=== PATIENT | female | born 1970 | race Caucasian/White ===

== ENCOUNTER 2016-05-02 17:48 | Emergency (ER) | payer MEDICARE, OTHER ==
[~2016-05-02] VITALS: Ht 175.3 cm; Wt 67.5 kg
[~2016-05-02 17:48] MED LIST: ATRITAB PO; CEPH500T PO; GABA300C3 PO; LAMO150 PO; PERC10TA27 PO; PERC5TAB12 PO; TIZA4 PO; TRAZ300T2 PO; VIMP200T PO
[2016-05-02 18:02] VITALS: BP 122/74; PULSE 89; RESP 16; TEMP 98.1; O2SAT 100
[2016-05-02 19:01] LABS: BLOOD, URINE NEG (NEG); GLUCOSE,URINE NEG (NEG); KETONE, URINE NEG (NEG); NITRITE,URINE NEG (NEG)
[2016-05-02 19:12] LABS: METHOD OF COLLECTION CLEAN CATCH; URINE COLOR YELLOW (YELLW/STRAW)
[2016-05-02 19:13] LABS: SQUAMOUS EPITHELIAL CELL URINE 0-5 /hpf (0-5)
[2016-05-02 19:15] LABS: COMMENT (UR) CULT NOT INDICATED; CULTURE IF INDICATED CULT NOT INDICATED; RBC, URINE 0-3 /hpf (0-3)
[2016-05-02] MEDS ORDERED: MORPHINE SULFATE 4 MG/ML INJ IV PUSH ONE (19:15)
[2016-05-02] MEDS ORDERED: SODIUM CHLORIDE 0.9% FLUSH 5 ML FLUSH IVF PRN (19:15)
[2016-05-02] MEDS ORDERED: ONDANSETRON HCL 4 MG/2 ML VIAL IVP ONE (19:15)
--- NOTE | 2016-05-02 19:27 | PD ---
HPI . Abdominal pain and bloating Chief Complaint: Abdominal Pain Time Seen by Provider: 19:04 Travel History International Travel<30 days: No Contact w/Intl Traveler<30days: No Traveled to known affect area: No History of Present Illness HPI Patient presents with abdominal pain and bloating which started today. She states that she normally has a 26 inch waist. She awakened this morning to an abdomen that looks to be about 6-7 months . She reports some associated nausea and vomiting. She reports normal bowel movements. She denies any urinary tract symptoms. She denies fever. PFSH Past Medical History Asthma: No Autoimmune Disease: Yes (HIV POSITIVE) Bipolar Disorder: Yes Anxiety: Yes (PANIC ATTACKS ) Depression: Yes (BIPOLAR) Cancer: No Cardiovascular Problems: No High Cholesterol: Yes Chest Pain: Yes Diabetes: No Diminished Hearing: No Endocrine: No Gastrointestinal Disorders: No Genitourinary: No Headaches: Yes Hepatitis: No Hiatal Hernia: No Immune Disorder: Yes (HIV POSITIVE) Kidney Stones: No Musculoskeletal: Yes (CHRONIC BACK PAIN, BULGING DISC) Neurologic: Yes (SEIZURES FROM ABNORMAL FRONTAL LOBE ACTIVITY; HEAD TRAUMA 1995 ) Psychiatric: Yes (MOOD DISORDER; PANIC ATTACKS ) Reproductive: No Respiratory: No Immunizations Current: Yes Migraines: Yes Seizures: Yes Thyroid Disease: No ?: Not Menopausal: Yes : 6 Para: 2 Miscarriage: 2 : 2 Past Surgical History Abdominal Surgery: No AICD: No Body Medical Devices: NONE Cardiac Surgery: No Ear Surgery: No Endocrine Surgery: No Eye Surgery: No Genitourinary Surgery: No Gynecologic Surgery: Yes (OVARIAN PROLASPED LEFT SURG REPOSITIONING 07/2012; PARTIAL HYSTERECTOMY ) Hysterectomy: Yes (PARTIAL) Joint Replacement: No Oral Surgery: No Pacemaker: No Thoracic Surgery: No Other Surgery: Yes (PARTIAL HYSTERECTOMEY) Social History Alcohol Use: No Tobacco Use: No (quit 14 days ago) Substance Use: Yes (MARIJUANA DAILY) Allergies-Medications (Allergen,Severity, Reaction): Coded Allergies: No Known Allergies (Unverified , 05/02/16) Reported Meds & Prescriptions Reported Meds & Active Scripts Active Reported Lamictal (Lamotrigine) 200 Mg Tab 200 Mg PO DAILY Atripla (Rskinzjsk-Zyirgwmyxyfft-Naoubkgjj) 600-200-300 Mg Tab 1 Tab PO HS Take on an empty stomach. Trazodone (Trazodone HCl) 150 Mg Tab 150 Mg PO HS Review of Systems Except as stated in HPI: all other systems reviewed are Neg General / Constitutional: No: Fever, Chills Cardiovascular: No: Chest Pain or Discomfort Respiratory: No: Shortness of Breath Gastrointestinal: Positive: Nausea, Vomiting, Abdominal Pain, Other (bloating) , No: Diarrhea, Constipation, Changes in Bowel Habits Genitourinary: Positive: Frequency (patient states that she is having to use the restroom more frequently as she gets older.), No: Urgency, Dysuria Musculoskeletal: Positive: Myalgias (chronic low back pain) Psychiatric: Positive: Anxiety, Depression Physical Exam Narrative GENERAL: Patient is standing in the room in no acute distress. SKIN: Warm and dry. HEAD: Atraumatic. Normocephalic. EYES: Pupils equal and round. ENT: No nasal bleeding or discharge. Mucous membranes pink and moist. NECK: Trachea midline. Neck is supple. CARDIOVASCULAR: Regular rate and rhythm. Heart sounds are normal. RESPIRATORY: No accessory muscle use. Lungs are clear with full air movement throughout. GASTROINTESTINAL: Abdomen soft. Decreased bowel sounds. Bloating. Diffuse mild tenderness with no guarding or rebound. MUSCULOSKELETAL: No obvious deformities. No edema. NEUROLOGICAL: Awake and alert. No obvious cranial nerve deficits. Motor grossly within normal limits. Normal speech. PSYCHIATRIC: Appropriate mood and affect; insight and judgment normal. Data Data Last Documented VS Vital Signs Date Time Temp Pulse Resp B/P Pulse Ox O2 Delivery O2 Flow Rate FiO2 05/02/16 18:02 98.1 89 16 122/74 100 Orders Urinalysis - C+S If Indicated (05/02/16 18:13) Ed Urine Pregnancytest Poc (05/02/16 18:13) Complete Blood Count With Diff (05/02/16 19:09) Comprehensive Metabolic Panel (05/02/16 19:09) Ct Abd/Pel W Iv Contrast(Rout) (05/02/16 19:09) Iv Access Insert/Monitor (05/02/16 19:09) Ecg Monitoring (05/02/16 19:09) Oximetry (05/02/16 19:09) Morphine Inj (Morphine Inj) (05/02/16 19:15) Ondansetron Inj (Zofran Inj) (05/02/16 19:15) Sodium Chloride 0.9% Flush (Ns Flush) (05/02/16 19:15) Iohexol 350 Inj (Omnipaque 350 Inj) (05/02/16 21:09) Labs Laboratory Tests Test 05/02/16 05/02/16 18:12 19:40 Urine Collection Type CLEAN CATCH Urine Color YELLOW Urine Turbidity CLEAR Urine pH 6.0 Urine Specific [place] 1.015 Urine Protein NEG mg/dL Urine Glucose (UA) NEG mg/dL Urine Ketones NEG mg/dL Urine Occult Blood NEG Urine Nitrite NEG Urine Bilirubin NEG Urine Leukocyte Esterase NEG Urine RBC 0-3 /hpf Urine Squamous Epithelial 0-5 /hpf Cells Microscopic Urinalysis Comment CULT NOT INDICATED White Blood Count 5.0 TH/MM3 Red Blood Count 3.56 MIL/MM3 Hemoglobin 12.0 GM/DL Hematocrit 36.0 % Mean Corpuscular Volume 101.0 FL Mean Corpuscular Hemoglobin 33.7 PG Mean Corpuscular Hemoglobin 33.4 % Concent Red Cell Distribution Width 12.3 % Platelet Count 169 TH/MM3 Mean Platelet Volume 8.3 FL Neutrophils (%) (Auto) 52.1 % Lymphocytes (%) (Auto) 41.4 % Monocytes (%) (Auto) 4.2 % Eosinophils (%) (Auto) 1.6 % Basophils (%) (Auto) 0.7 % Neutrophils # (Auto) 2.6 TH/MM3 Lymphocytes # (Auto) 2.1 TH/MM3 Monocytes # (Auto) 0.2 TH/MM3 Eosinophils # (Auto) 0.1 TH/MM3 Basophils # (Auto) 0.0 TH/MM3 CBC Comment DIFF FINAL Differential Comment Sodium Level 141 MEQ/L Potassium Level 4.1 MEQ/L Chloride Level 105 MEQ/L Carbon Dioxide Level 31.0 MEQ/L Anion Gap 5 MEQ/L Blood Urea Nitrogen 16 MG/DL Creatinine 0.79 MG/DL Estimat Glomerular Filtration 79 ML/MIN Rate Random Glucose 92 MG/DL Calcium Level 8.2 MG/DL Total Bilirubin 0.1 MG/DL Aspartate Amino Transf 17 U/L (AST/SGOT) Alanine Aminotransferase 24 U/L (ALT/SGPT) Alkaline Phosphatase 70 U/L Total Protein 6.4 GM/DL Albumin 3.7 GM/DL [facility] Medical Decision Making Medical Screen Exam Complete: Yes Emergency Medical Condition: Yes Differential Diagnosis Differential diagnosis of abdominal pain includes but is not limited to gastritis, pancreatitis, hepatitis, gastroenteritis, gallbladder disease, constipation, urinary retention, UTI, peptic ulcer disease, diverticulitis or appendicitis Narrative Course Patient presents for evaluation of abdominal pain and bloating. Her past medical history significant in that she is HIV positive, she has a previous closed head injury with a resultant seizure disorder, chronic low back pain, chronic anxiety and depression. 8 PM Her UA is negative for infection. No other labs are currently available. 9:30 PM CBC has a normal white count of 5.0. H&H is 12.0 36.0. Chemistries are unremarkable. CT shows a considerable amount of stool. CT also reports a possible superior mesenteric artery syndrome. However, she has normal labs. Therefore, I doubt that diagnosis. I will treat her for constipation. Diagnosis Primary Impression: Abdominal pain Qualified Code: R10.84 - Generalized abdominal pain Additional Impression: Constipation Patient Instructions: Constipation (ED), General Instructions Disposition: 01 DISCHARGE HOME Condition: Stable Laura Bernstein MD May 02, 2016 19:26
[2016-05-02 20:15] LABS: AUTOMATED NEUTROPHIL # 2.6 TH/MM3 (1.8-7.7); BASOPHIL % 0.7 % (0.0-2.0); EOSINOPHIL # 0.1 TH/MM3 (0-0.4); EOSINOPHIL % 1.6 % (0.0-4.0); HEMO FLAGS DIFF FINAL; LYMPH % 41.4 % (9.0-44.0); LYMPHOCYTE # 2.1 TH/MM3 (1.0-4.8); MEAN CORPUSCULAR HEMOGLOBIN 33.7 PG (27.0-34.0); MEAN CORPUSCULAR HGB CONC 33.4 % (32.0-36.0); MONO % 4.2 % (0.0-8.0); NEUT % 52.1 % (16.0-70.0); PLATELET COUNT 169 TH/MM3 (150-450); RED BLOOD COUNT 3.56 MIL/MM3 (4.00-5.30); RED CELL DISTRIBUTION WIDTH 12.3 % (11.6-17.2)
[2016-05-02] MEDS ORDERED: ATRITAB PO (20:20)
[2016-05-02] MEDS ORDERED: LAMI200T PO (20:20)
[2016-05-02] MEDS ORDERED: TRAZ150T75 PO (20:20)
[2016-05-02 20:27] LABS: CHLORIDE 105 MEQ/L (98-107); POTASSIUM 4.1 MEQ/L (3.5-5.1); SODIUM (NA) 141 MEQ/L (136-145)
[2016-05-02 20:31] LABS: ANION GAP 5 MEQ/L (5-15); BLOOD UREA NITROGEN 16 MG/DL (7-18)
[2016-05-02 20:34] LABS: ALT (GPT) 24 U/L (10-53); AST (GOT) 17 U/L (15-37); GLOMERULAR FILTRATION RATE 79 ML/MIN (>89)
[2016-05-02 20:35] LABS: TOTAL BILIRUBIN ADULT 0.1 MG/DL (0.2-1.0)
[2016-05-02 20:37] LABS: ALKALINE PHOSPHATASE 70 U/L (45-117)
[2016-05-02] MEDS ORDERED: IOHEXOL 350 MG/ML 10 ML VIAL (for RAD DIAG) IV ONE (21:09)
--- NOTE | 2016-05-02 21:20 | RADHPO ---
EXAM DATE/TIME: 05/02/2016 20:53 [facility] COMPARISON: CT ABDOMEN & PELVIS W CONTRAST, October 29, 2012, 15:18. INDICATIONS : Abdomen distention. IV CONTRAST: 76 cc Omnipaque 350 (iohexol) IV ORAL CONTRAST: No oral contrast ingested. RADIATION DOSE: 8.08 CTDIvol (mGy) MEDICAL HISTORY : HIV. SURGICAL HISTORY : Hysterectomy. ENCOUNTER: Initial ACUITY: 1 day PAIN SCALE: 7/10 LOCATION: abdomen TECHNIQUE: Volumetric scanning of the abdomen and pelvis was performed. Using automated exposure control and ad justment of the mA and/or kV according to patient size, radiation dose was kept as low as reasonably achievable to obtain optimal diagnostic quality images. FINDINGS: LOWER LUNGS: The visualized lower lungs are clear. LIVER: Homogeneous density without lesion. There is no dilation of the biliary tree. No calcified gallston es. SPLEEN: Normal size without lesion. PANCREAS: Within normal limits. KIDNEYS: Normal in size and shape. There is no mass, stone or hydronephrosis. ADRENAL GLANDS: Within normal limits. VASCULAR: There is no aortic aneurysm. BOWEL/MESENTERY: Common caliber second and third portions of the duodenum noted Moderate stool throughout the colon. N o evidence of colonic obstruction. No free air demonstrated. Appendix is normal. ABDOMINAL WALL: Within normal limits. RETROPERITONEUM: There is no lymphadenopathy. BLADDER: No wall thickening or mass. REPRODUCTIVE: Apparent hysterectomy. No free fluid. INGUINAL: There is no lymphadenopathy or hernia. MUSCULOSKELETAL: No acute bony abnormality demonstrated. CONCLUSION: 1. Common caliber second and third portion of the duodenum, nonspecific but superior mesenteric arter y syndrome would be in the differential. I don't see a mass.2. Considerable stool throughout the colo n. No evidence of colonic obstruction. Azar Reyna MD on May 02, 2016 at 21:14 Board Certified Radiologist. This report was verified electronically.
[2016-05-02 21:35] VITALS: BP 154/67; PULSE 89; RESP 16; O2SAT 99
[2016-05-02] MEDS ORDERED: MINERAL OIL ENEMA 118 ML BTL RECTAL ONE (21:45)
[2016-05-02] MEDS ORDERED: MAGNESIUM CITRATE SOLN 300 ML BTL PO ONE (21:45)
== END 2016-05-02 22:25 | disposition home or self-care (01) ==
LOC: PHED 17:48
DX: R10.84 Generalized abdominal pain (principal); R11.2 Nausea with vomiting, unspecified; E78.00 Pure hypercholesterolemia, unspecified; F12.10 Cannabis abuse, uncomplicated; K59.00 Constipation, unspecified
CPT/HCPCS: 74177; 80053; 81001; 84703; 85025; 96374; 96375; 99284; J2270; J2405; Q9967

== ENCOUNTER 2016-06-20 11:51 | Emergency (ER) | payer MEDICARE, OTHER ==
[~2016-06-20] VITALS: Ht 175.3 cm; Wt 70.0 kg
[~2016-06-20 11:51] MED LIST changes: -CEPH500T PO; -GABA300C3 PO; +LAMI200T PO; -LAMO150 PO; -PERC10TA27 PO; -PERC5TAB12 PO; -TIZA4 PO; +TRAZ150T75 PO; -TRAZ300T2 PO; -VIMP200T PO
[2016-06-20 12:02] VITALS: BP 126/58; PULSE 92; RESP 18; TEMP 98.9; O2SAT 99
[2016-06-20] MEDS ORDERED: ACETAMINOPHEN/CODEINE 300 MG/30 MG TAB PO ONE (13:15)
[2016-06-20] MEDS ORDERED: ORPHENADRINE INJ 60 MG/2 ML AMP IM ONE (13:15)
[2016-06-20] MEDS ORDERED: KETOROLAC TROMETHAMINE 60 MG/2 ML (IM) VIAL IM ONE (13:15)
--- NOTE | 2016-06-20 13:18 | PD ---
HPI Chief Complaint: Back/ Neck Pain or Injury Time Seen by Provider: 13:10 Travel History International Travel<30 days: No Contact w/Intl Traveler<30days: No Traveled to known affect area: No History of Present Illness HPI 45-year-old female with history of HIV, epilepsy, on antiretroviral therapy. She presents for evaluation of back pain. She reports that yesterday she moved into a new apartment building on the second floor. She had to do a lot of heavy lifting and exacerbated her chronic lower back pain. This morning she slipped on the steps and landed on her back while walking down the stairs. Since then she has had worsening lower back pain. The pain is an aching pain is constant and worse with movement. The pain radiates down the posterior left leg. She denies any bowel or bladder incontinence, saddle anesthesia, abdominal pain. She reports that she is status post L4 to L5 laminectomy in January 2015 secondary to intractable lower back pain with radicular symptoms. Her last MRI in October 2015 revealed generalized degenerative changes. She has no other complaints. 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; HEAD TRAUMA 1995 ) Psychiatric: Yes (MOOD DISORDER; PANIC ATTACKS ) Reproductive: No Respiratory: No Immunizations Current: Yes Migraines: Yes Seizures: Yes Thyroid Disease: No Influenza Vaccination: Yes ?: Not Menopausal: Yes : 6 Para: 2 Miscarriage: 2 : 2 Past Surgical History Abdominal Surgery: No AICD: No Body Medical Devices: NONE Cardiac Surgery: No Ear Surgery: No Endocrine Surgery: No Eye Surgery: No Genitourinary Surgery: No Gynecologic Surgery: Yes (OVARIAN PROLASPED LEFT SURG REPOSITIONING 07/2012; PARTIAL HYSTERECTOMY ) Hysterectomy: Yes Joint Replacement: No Neurologic Surgery: No Oral Surgery: No Pacemaker: No Thoracic Surgery: No Other Surgery: Yes (PARTIAL HYSTERECTOMEY) Social History Alcohol Use: No Tobacco Use: No Substance Use: Yes (MARIJUANA DAILY) Allergies-Medications (Allergen,Severity, Reaction): Coded Allergies: No Known Allergies (Unverified , 06/20/16) Reported Meds & Prescriptions Reported Meds & Active Scripts Active Baclofen 10 Mg Tab 10 Mg PO TID 10 Days Tylenol-Codeine #3 (Acetaminophen-Codeine) 300-30 mg Tab 1-2 Tab PO Q6H PRN Reported Lamictal (Lamotrigine) 200 Mg Tab 200 Mg PO DAILY Atripla (Mwyyrriwg-Iynguzjzysehv-Ludfvzpfw) 600-200-300 Mg Tab 1 Tab PO HS Take on an empty stomach. Trazodone (Trazodone HCl) 150 Mg Tab 150 Mg PO HS Review of Systems Except as stated in HPI: all other systems reviewed are Neg Physical Exam Narrative GENERAL: Well-developed well-nourished female who is tearful and anxious. SKIN: Warm and dry. There is no bruising or soft tissue swelling. HEAD: Atraumatic. Normocephalic. EYES: Pupils equal and round. No scleral icterus. No injection or drainage. ENT: No nasal bleeding or discharge. Mucous membranes pink and moist. NECK: Trachea midline. No JVD. CARDIOVASCULAR: Regular rate and rhythm. No murmur appreciated. RESPIRATORY: No accessory muscle use. Clear to auscultation. Breath sounds equal bilaterally. GASTROINTESTINAL: Abdomen soft, non-tender, nondistended. Hepatic and splenic margins not palpable. MUSCULOSKELETAL: No obvious deformities. There is mild generalized tenderness to palpation to the lower back. Negative straight leg raise bilaterally. Normal range of motion of the lower extremities. There is some pain with hip flexor activity. No CVA tenderness. NEUROLOGICAL: Awake and alert. No obvious cranial nerve deficits. Motor grossly within normal limits. Normal speech. Data Data Last Documented VS Vital Signs Date Time Temp Pulse Resp B/P Pulse Ox O2 Delivery O2 Flow Rate FiO2 06/20/16 12:02 98.9 92 18 126/58 99 Orders Spine, Thoracic-Ap/Lat/Sw(3vw) (06/20/16 ) Spine, Lumbar - Ltd (Ap & Lat) (06/20/16 ) Acetamin-Codeine 300-30 Mg (Tylenol-Code (06/20/16 13:15) Ketorolac Inj (Toradol Inj) (06/20/16 13:15) Orphenadrine Inj (Norflex Inj) (06/20/16 13:15) [facility] Medical Decision Making Medical Screen Exam Complete: Yes Emergency Medical Condition: Yes Medical Record Reviewed: Yes Differential Diagnosis Herniated mucous pulposus, muscle strain, muscle spasm, fracture, contusion, spinal stenosis Narrative Course 45-year-old female with chronic lower back pain presents with worsening lower back pain after moving into a second-story apartment yesterday and falling down some stairs today. She has no symptoms to suggest a central spinal cord injury. She does have some radicular symptoms down the back of her left leg. X -ray of the thoracic and lumbar spine reveal no acute abnormalities. The patient is being discharged with Tylenol with Codeine and baclofen. Diagnosis Primary Impression: Lumbosacral radiculopathy Additional Instructions: Medication as needed. Do not drive or drink alcohol when taking his medications. Rest. Avoid strenuous activity. Follow-up with primary care physician in one to 2 weeks. Return for any emergent medical conditions. Med/Other Pt SpecificInfo: Prescription(s) given Scripts Baclofen 10 Mg Tab10 Mg PO TID 10 Days Ref 0 Prov:Gerald Rizo MD 06/20/16 Acetaminophen-Codeine (Tylenol-Codeine #3)300-30 mg Tab1-2 Tab PO Q6H PRN (PAIN ) #20 TAB Ref 0 Prov:Gerald Rizo MD 06/20/16 Disposition: 01 DISCHARGE HOME Condition: Stable Leighton Rios Jun 20, 2016 13:18
--- NOTE | 2016-06-20 14:07 | RADHPO ---
EXAM DATE/TIME: 06/20/2016 13:32 [facility] COMPARISON: No previous studies available for comparison. INDICATIONS : Upper back pain after fall. MEDICAL HISTORY : None. SURGICAL HISTORY : Discectomy, lumbar. ENCOUNTER: Initial ACUITY: 1 day PAIN SCORE: 10/10 LOCATION: Thoracic spine FINDINGS: There is normal alignment of the thoracic vertebral bodies. Vertebral body height is maintained. No evidence of fracture or subluxation. Pedicles are intact at all levels. The paravertebral reflecti ons are not thickened. Mild degenerative spondylosis seen in the mid to lower levels. CONCLUSION: Mild mid to lower thoracic spondylosis. No evidence of acute fracture, destructive changes or soft tissue abnormality. Chito Gray MD on June 20, 2016 at 14:04 Board Certified Radiologist. This report was verified electronically.
--- NOTE | 2016-06-20 14:07 | RADHPO ---
EXAM DATE/TIME: 06/20/2016 13:33 [facility] COMPARISON: No previous studies available for comparison. INDICATIONS : Lower back pain after fall. MEDICAL HISTORY : None. SURGICAL HISTORY : Discectomy, lumbar. ENCOUNTER: Initial ACUITY: 1 day PAIN SCORE: 10/10 LOCATION: Lumbar spine FINDINGS: Two view examination was performed. There are five non-rib bearing vertebral bodies. The vertebral bodies are in normal alignment without evidence of subluxation or scoliosis. The disc spaces are tawana ntained. The pedicles are intact. Bony mineralization is normal. No fracture is identified. CONCLUSION: No acute disease. Chito Gray MD on June 20, 2016 at 14:06 Board Certified Radiologist. This report was verified electronically.
[2016-06-20] MEDS ORDERED: TYLETAB34 PO (14:21)
[2016-06-20] MEDS ORDERED: BACL10TA PO (14:21)
== END 2016-06-20 14:40 | disposition home or self-care (01) ==
LOC: PHEFT 11:51
DX: M54.17 Radiculopathy, lumbosacral region (principal); G89.29 Other chronic pain; B20 Human immunodeficiency virus [HIV] disease
CPT/HCPCS: 72072; 72100; 96372; 99283; J1885; J2360

== ENCOUNTER 2016-11-26 15:01 | Emergency (ER) | payer MEDICARE, OTHER ==
[~2016-11-26 15:01] MED LIST changes: +BACL10TA PO; +TYLETAB34 PO
--- NOTE | 2016-11-26 15:22 | PD ---
HPI Chief Complaint: BA Time Seen by Provider: 15:22 Travel History International Travel<30 days: No Contact w/Intl Traveler<30days: No Traveled to known affect area: No History of Present Illness HPI 46-year-old female with history of bipolar disorder, depression, HIV with undetectable CD4 count, opiate dependency, presents to the emergency department for evaluation under a [facility] act. Patient states she last used here when yesterday morning around 3 AM. She is actively withdrawing. She states she does not want to live anymore. She was placed under [facility] act due to suicidal threats. Patient does not discuss a plan. She is extremely anxious at this time and states that she "needs help." States she typically snorts 8-10 g of heroin daily. She denies a chest x-ray or tightness. States that she has entire body aches and is extremely anxious. She has no other symptoms reported time. 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; HEAD TRAUMA 1995 ) Psychiatric: Yes (MOOD DISORDER; PANIC ATTACKS ) Reproductive: No Respiratory: No Immunizations Current: Yes Migraines: Yes Seizures: Yes Thyroid Disease: No Menopausal: Yes : 6 Para: 2 Miscarriage: 2 : 2 Past Surgical History Abdominal Surgery: No AICD: No Body Medical Devices: NONE Cardiac Surgery: No Ear Surgery: No Endocrine Surgery: No Eye Surgery: No Genitourinary Surgery: No Gynecologic Surgery: Yes (OVARIAN PROLASPED LEFT SURG REPOSITIONING 07/2012; PARTIAL HYSTERECTOMY ) Hysterectomy: Yes Joint Replacement: No Neurologic Surgery: No Oral Surgery: No Pacemaker: No Thoracic Surgery: No Other Surgery: Yes (PARTIAL HYSTERECTOMEY) Social History Alcohol Use: No Tobacco Use: No Substance Use: Yes (MARIJUANA DAILY) Allergies-Medications (Allergen,Severity, Reaction): Coded Allergies: No Known Allergies (Unverified , 11/26/16) Reported Meds & Prescriptions Reported Meds & Active Scripts Active Reported Lamictal (Lamotrigine) 200 Mg Tab 200 Mg PO DAILY Atripla (Dvbxstsyw-Xvhehwaalhsej-Ztytnqpqs) 600-200-300 Mg Tab 1 Tab PO HS Take on an empty stomach. Review of Systems Except as stated in HPI: all other systems reviewed are Neg Physical Exam Narrative GENERAL: Well-nourished female patient, anxious, agitated, unable to sit still, frequent yawning, jerking movements. SKIN: Focused skin assessment warm/dry. Track lozano bilateral upper extremities. 3 cm area of Slight erythema left forearm. No induration. No fluctuation. HEAD: Atraumatic. Normocephalic. EYES: Pupils equal and round. No scleral icterus. No injection or drainage. ENT: No nasal bleeding or discharge. Mucous membranes pink and moist. NECK: Trachea midline. No JVD. CARDIOVASCULAR: Elevated rate and rhythm. No murmur appreciated. RESPIRATORY: No accessory muscle use. Clear to auscultation. Breath sounds equal bilaterally. GASTROINTESTINAL: Abdomen soft, non-tender, nondistended. Hepatic and splenic margins not palpable. MUSCULOSKELETAL: No obvious deformities. No clubbing. No cyanosis. No edema. NEUROLOGICAL: Awake and alert. No obvious cranial nerve deficits. Motor grossly within normal limits. Normal speech. Data Data Last Documented VS Vital Signs Date Time Temp Pulse Resp B/P Pulse Ox O2 Delivery O2 Flow Rate FiO2 11/26/16 15:25 98.9 107 18 127/97 96 Orders Complete Blood Count With Diff (11/26/16 15:24) Basic Metabolic Panel (Bmp) (11/26/16 15:24) Urinalysis - C+S If Indicated (11/26/16 15:24) Psych Screen (11/26/16 15:24) Drug Screen, Random Urine (11/26/16 15:24) Alcohol (Ethanol) (11/26/16 15:24) Diphenhydramine Inj (Benadryl Inj) (11/26/16 15:45) Haloperidol Inj (Haldol Inj) (11/26/16 15:45) Lorazepam Inj (Ativan Inj) (11/26/16 15:45) Labs Laboratory Tests Test 11/26/16 11/26/16 15:34 15:36 White Blood Count 7.1 TH/MM3 Red Blood Count 4.04 MIL/MM3 Hemoglobin 14.0 GM/DL Hematocrit 41.1 % Mean Corpuscular Volume 101.7 FL Mean Corpuscular Hemoglobin 34.7 PG Mean Corpuscular Hemoglobin 34.1 % Concent Red Cell Distribution Width 12.7 % Platelet Count 190 TH/MM3 Mean Platelet Volume 8.5 FL Neutrophils (%) (Auto) 66.0 % Lymphocytes (%) (Auto) 24.1 % Monocytes (%) (Auto) 5.4 % Eosinophils (%) (Auto) 4.0 % Basophils (%) (Auto) 0.5 % Neutrophils # (Auto) 4.7 TH/MM3 Lymphocytes # (Auto) 1.7 TH/MM3 Monocytes # (Auto) 0.4 TH/MM3 Eosinophils # (Auto) 0.3 TH/MM3 Basophils # (Auto) 0.0 TH/MM3 CBC Comment DIFF FINAL Differential Comment Sodium Level 141 MEQ/L Potassium Level 4.1 MEQ/L Chloride Level 108 MEQ/L Carbon Dioxide Level 22.2 MEQ/L Anion Gap 11 MEQ/L Blood Urea Nitrogen 15 MG/DL Creatinine 0.76 MG/DL Estimat Glomerular Filtration 83 ML/MIN Rate Random Glucose 95 MG/DL Calcium Level 8.7 MG/DL Ethyl Alcohol Level 43 MG/DL Urine Color LIGHT-YELLOW Urine Turbidity CLEAR Urine pH 6.0 Urine Specific [place] 1.005 Urine Protein NEG mg/dL Urine Glucose (UA) NEG mg/dL Urine Ketones NEG mg/dL Urine Occult Blood NEG Urine Nitrite NEG Urine Bilirubin NEG Urine Urobilinogen LESS THAN 2.0 MG/DL Urine Leukocyte Esterase NEG Urine RBC LESS THAN 1 /hpf Urine WBC LESS THAN 1 /hpf Urine Squamous Epithelial 1 /hpf Cells Urine Bacteria RARE /hpf Microscopic Urinalysis Comment CULT NOT INDICATED Urine Opiates Screen NEG Urine Barbiturates Screen NEG Urine Amphetamines Screen NEG Urine Benzodiazepines Screen POS Urine Cocaine Screen NEG Urine Cannabinoids Screen POS MDM Medical Decision Making Medical Screen Exam Complete: Yes Emergency Medical Condition: Yes Medical Record Reviewed: Yes Differential Diagnosis Mood disorder versus personality disorder versus adjustment reaction disorder versus opiate dependency versus withdrawal Narrative Course 46-year-old female presents under [facility] psychiatric evaluation. Patient states she is withdrawing from line. She is agitated, anxious, and unable to sit still during my time with her. Laboratory Tests Test 11/26/16 11/26/16 15:34 15:36 White Blood Count 7.1 TH/MM3 Red Blood Count 4.04 MIL/MM3 Hemoglobin 14.0 GM/DL Hematocrit 41.1 % Mean Corpuscular Volume 101.7 FL Mean Corpuscular Hemoglobin 34.7 PG Mean Corpuscular Hemoglobin 34.1 % Concent Red Cell Distribution Width 12.7 % Platelet Count 190 TH/MM3 Mean Platelet Volume 8.5 FL Neutrophils (%) (Auto) 66.0 % Lymphocytes (%) (Auto) 24.1 % Monocytes (%) (Auto) 5.4 % Eosinophils (%) (Auto) 4.0 % Basophils (%) (Auto) 0.5 % Neutrophils # (Auto) 4.7 TH/MM3 Lymphocytes # (Auto) 1.7 TH/MM3 Monocytes # (Auto) 0.4 TH/MM3 Eosinophils # (Auto) 0.3 TH/MM3 Basophils # (Auto) 0.0 TH/MM3 CBC Comment DIFF FINAL Differential Comment Sodium Level 141 MEQ/L Potassium Level 4.1 MEQ/L Chloride Level 108 MEQ/L Carbon Dioxide Level 22.2 MEQ/L Anion Gap 11 MEQ/L Blood Urea Nitrogen 15 MG/DL Creatinine 0.76 MG/DL Estimat Glomerular Filtration 83 ML/MIN Rate Random Glucose 95 MG/DL Calcium Level 8.7 MG/DL Ethyl Alcohol Level 43 MG/DL Urine Color LIGHT-YELLOW Urine Turbidity CLEAR Urine pH 6.0 Urine Specific [place] 1.005 Urine Protein NEG mg/dL Urine Glucose (UA) NEG mg/dL Urine Ketones NEG mg/dL Urine Occult Blood NEG Urine Nitrite NEG Urine Bilirubin NEG Urine Urobilinogen LESS THAN 2.0 MG/DL Urine Leukocyte Esterase NEG Urine RBC LESS THAN 1 /hpf Urine WBC LESS THAN 1 /hpf Urine Squamous Epithelial 1 /hpf Cells Urine Bacteria RARE /hpf Microscopic Urinalysis Comment CULT NOT INDICATED Urine Opiates Screen NEG Urine Barbiturates Screen NEG Urine Amphetamines Screen NEG Urine Benzodiazepines Screen POS Urine Cocaine Screen NEG Urine Cannabinoids Screen POS Patient is given Ativan, Benadryl, and Haldol. On reassessment, she is more calm. At this time she is medically cleared and undergo psychiatric screening for further evaluation and disposition. Mental health screening discussed with the patient. Psychiatric screen ordered. Diagnosis Primary Impression: Adjustment reaction Qualified Code: F43.23 - Adjustment disorder with mixed anxiety and depressed mood Additional Impressions: Opiate dependence Qualified Code: F11.29 - Opioid dependence with opioid-induced disorder Opiate withdrawal Condition: Stable Sherry Dumont Nov 26, 2016 15:22
[2016-11-26 15:25] VITALS: BP 127/97; PULSE 107; RESP 18; TEMP 98.9; O2SAT 96
[2016-11-26] MEDS ORDERED: diphenhydrAMINE HCL 50 MG/ML VIAL IM ONE (15:45)
[2016-11-26] MEDS ORDERED: HALOPERIDOL LACTATE 5 MG/ML AMP IM ONE (15:45)
[2016-11-26] MEDS ORDERED: LORazepam 2 MG/ML VIAL IM ONE ×2 (15:45→20:30)
[2016-11-26 16:20] LABS: BACTERIA, URINE RARE /hpf; BLOOD, URINE NEG (NEG); COMMENT (UR) CULT NOT INDICATED; CULTURE IF INDICATED CULT NOT INDICATED; GLUCOSE,URINE NEG (NEG); KETONE, URINE NEG (NEG); NITRITE,URINE NEG (NEG); SQUAMOUS EPITHELIAL CELL URINE 1 /hpf (0-5); URINE COLOR LIGHT-YELLOW (YELLW/STRAW)
[2016-11-26 16:27] LABS: AUTOMATED NEUTROPHIL # 4.7 TH/MM3 (1.8-7.7); BASOPHIL % 0.5 % (0.0-2.0); EOSINOPHIL # 0.3 TH/MM3 (0-0.4); HEMATOCRIT 41.1 % (35.0-46.0); HEMO FLAGS DIFF FINAL; LYMPH % 24.1 % (9.0-44.0); LYMPHOCYTE # 1.7 TH/MM3 (1.0-4.8); MEAN CELL VOLUME 101.7 FL (80.0-100.0); MEAN CORPUSCULAR HEMOGLOBIN 34.7 PG (27.0-34.0); MEAN CORPUSCULAR HGB CONC 34.1 % (32.0-36.0); MONO % 5.4 % (0.0-8.0); PLATELET COUNT 190 TH/MM3 (150-450); RED BLOOD COUNT 4.04 MIL/MM3 (4.00-5.30); RED CELL DISTRIBUTION WIDTH 12.7 % (11.6-17.2); WHITE BLOOD COUNT 7.1 TH/MM3 (4.0-11.0)
[2016-11-26 16:53] LABS: BICARBONATE 22.2 MEQ/L (21.0-32.0); POTASSIUM 4.1 MEQ/L (3.5-5.1)
[2016-11-26 17:45] VITALS: PULSE 88; RESP 16; O2SAT 98
[2016-11-26 20:06] VITALS: BP 100/57; PULSE 92; RESP 16; O2SAT 97
[2016-11-26 21:45] VITALS: BP 117/73; PULSE 91; RESP 18; TEMP 96.9; O2SAT 98
[2016-11-27] MEDS ORDERED: LORazepam 1 MG TAB PO ONE (03:00)
[2016-11-27] MEDS ORDERED: ONDANSETRON ODT 4 MG TAB PO ONE (03:00)
[2016-11-27 07:07] VITALS: BP 130/88; PULSE 95; RESP 20; O2SAT 98
[2016-11-27] MEDS ORDERED: cloNIDine HCL 0.2 MG TAB PO ONE (08:00)
--- NOTE | 2016-11-27 09:47 | PD.PSY.CON ---
Provisional Diagnosis Admission Date [place] I. Polysubstance dependence, including alcohol, cannabis, benzodiazepines, heroine [place] II. Deferred [place] III. HIV History of Present Illness Service Psychiatry Consult Requested By Reason for Consult Suicidal ideation Primary Care Physician Unknown HPI The patient is a 46-year-old woman, domiciled in [place], , unemployed, with self-reported psychiatric history of bipolar disorder, depression, polysubstance dependence, including cannabis, alcohol, heroine, benzos, no psychiatric hospitalizations, no previous suicidal attempts, medical history of HIV with undetectable CD4 count, who presents to the emergency department for evaluation under a [facility] act. ER documentation :Patient states she last used here when yesterday morning around 3 AM. She is actively withdrawing. She states she does not want to live anymore. She was placed under [facility] act due to suicidal threats. Patient does not discuss a plan. She is extremely anxious at this time and states that she "needs help." States she typically snorts 8-10 g of heroin daily. She denies a chest x-ray or tightness. States that she has entire body aches and is extremely anxious. She has no other symptoms reported time. On psychiatric evaluation today patient seems to be actively withdrawing, reports pain, sweating, lacrimation's , discomfort. However, patient denies depressive symptoms, she denies suicidal and homicidal ideation, she denies visual and auditory hallucinations. Patient is future and goal oriented, oriented 3. He reports daily use of IV heroine, also street benzodiazepines, cannabis and alcohol occasionally. Review of Systems Constitutional: DENIES: Diaphoretic episodes, Fatigue, Fever, Weight gain, Weight loss, Chills, Dizziness, Change in appetite, Night Sweats Endocrine: DENIES: Abnorml menstrual pattern, Heat/cold intolerance, Polydipsia , Polyuria, Polyphagia Eyes: DENIES: Blurred vision, Diplopia, Eye inflammation, Eye pain, Vision loss , Photosensitivity, Double Vision Ears, nose, mouth, throat: DENIES: Tinnitus, Hearing loss, Vertigo, Nasal discharge, Oral lesions, Throat pain, Hoarseness, Ear Pain, Running Nose, Epistaxis, Sinus Pain, Toothache, Odynophagia Respiratory: DENIES: Apneas, Cough, Snoring, Wheezing, Hemoptysis, Sputum production, Shortness of breath Gastrointestinal: COMPLAINS OF: Abdominal pain, Nausea, DENIES: Black stools, Bloody stools, Constipation, Diarrhea, Vomiting, Difficulty Swallowing, Anorexia Musculoskeletal: COMPLAINS OF: Muscle aches, Back pain, Neck pain, DENIES: Joint pain, Stiffness, Joint Swelling Hematologic/lymphatic: DENIES: Bruising, Lymphadenopathy Neurologic: DENIES: Abnormal gait, Headache, Localized weakness, Paresthesias, Seizures, Speech Problems, Tremor, Poor Balance Psychiatric: DENIES: Anxiety, Confusion, Mood changes, Depression, Hallucinations, Agitation, Suicidal Ideation, Homicidal Ideation, Delusions Past Family Social History Coded Allergies: No Known Allergies (Unverified , 11/26/16) Reported Medications Lamotrigine (Lamictal)200 Mg [id number] Mg PO DAILY #30 TAB Ref 0 05/02/16 Uzovebecs-Jefcfrquahrtf-Cvgtmopbz (Atripla)600-200-300 Mg Tab1 Tab PO HS #30 TAB Ref 0 Take on an empty stomach. 05/02/16 Discontinued Reported Medications Trazodone 150 Mg [id number] Mg PO HS #30 TAB Ref 0 05/02/16 Discontinued Scripts Baclofen 10 Mg Tab10 Mg PO TID 10 Days Ref 0 Prov:Gerald Rizo MD 06/20/16 Acetaminophen-Codeine (Tylenol-Codeine #3)300-30 mg Tab1-2 Tab PO Q6H PRN (PAIN ) #20 TAB Ref 0 Prov:Gerlad Rizo MD 06/20/16 Family History Patient denies family psychiatric history Social History Patient was born in [place], she lives in [place] with her , unemployed, supported by [facility] Patient's Strengths (min. 2) Verbal communication, family support Physical Exam Vital Signs Vital Signs Date Time Temp Pulse Resp B/P Pulse Ox O2 Delivery O2 Flow Rate FiO2 11/27/16 07:07 95 20 130/88 98 11/26/16 21:45 96.9 11/26/16 20:06 Room Air Lab Results Labs Laboratory Tests Test 11/26/16 11/26/16 15:34 15:36 White Blood Count 7.1 TH/MM3 Red Blood Count 4.04 MIL/MM3 Hemoglobin 14.0 GM/DL Hematocrit 41.1 % Mean Corpuscular Volume 101.7 FL Mean Corpuscular Hemoglobin 34.7 PG Mean Corpuscular Hemoglobin 34.1 % Concent Red Cell Distribution Width 12.7 % Platelet Count 190 TH/MM3 Mean Platelet Volume 8.5 FL Neutrophils (%) (Auto) 66.0 % Lymphocytes (%) (Auto) 24.1 % Monocytes (%) (Auto) 5.4 % Eosinophils (%) (Auto) 4.0 % Basophils (%) (Auto) 0.5 % Neutrophils # (Auto) 4.7 TH/MM3 Lymphocytes # (Auto) 1.7 TH/MM3 Monocytes # (Auto) 0.4 TH/MM3 Eosinophils # (Auto) 0.3 TH/MM3 Basophils # (Auto) 0.0 TH/MM3 CBC Comment DIFF FINAL Differential Comment Sodium Level 141 MEQ/L Potassium Level 4.1 MEQ/L Chloride Level 108 MEQ/L Carbon Dioxide Level 22.2 MEQ/L Anion Gap 11 MEQ/L Blood Urea Nitrogen 15 MG/DL Creatinine 0.76 MG/DL Estimat Glomerular Filtration 83 ML/MIN Rate Random Glucose 95 MG/DL Calcium Level 8.7 MG/DL Ethyl Alcohol Level 43 MG/DL Urine Color LIGHT-YELLOW Urine Turbidity CLEAR Urine pH 6.0 Urine Specific [place] 1.005 Urine Protein NEG mg/dL Urine Glucose (UA) NEG mg/dL Urine Ketones NEG mg/dL Urine Occult Blood NEG Urine Nitrite NEG Urine Bilirubin NEG Urine Urobilinogen LESS THAN 2.0 MG/DL Urine Leukocyte Esterase NEG Urine RBC LESS THAN 1 /hpf Urine WBC LESS THAN 1 /hpf Urine Squamous Epithelial 1 /hpf Cells Urine Bacteria RARE /hpf Microscopic Urinalysis Comment CULT NOT INDICATED Urine Opiates Screen NEG Urine Barbiturates Screen NEG Urine Amphetamines Screen NEG Urine Benzodiazepines Screen POS Urine Cocaine Screen NEG Urine Cannabinoids Screen POS Mental Status Examination Appearance woman, age appearing, poor hygiene, restless, tremulous, superficially cooperative Speech: Unremarkable Memory: Unremarkable Thought Process: Logical Thought Content: Unremarkable Hallucination Type: None Suicidal Ideation: No Previous Suicide Attempts: No Homicidal Ideation: No Previous Homicide Attempts: No Judgment: WNL Affect: Good Mood: Appropriate Motor Activity: Normal gait Assessment & Plan Problem List: (1) Substance induced mood disorder Assessment & Plan: Patient will be medicated with clonidine 0.2 mg stat ibuprofen 600 mg for symptoms of opiate withdrawal. However, since the patient does not present any evidence of increased risk of danger to herself and others , she denies depression, denies anxiety, denies psychosis denies suicidal and homicidal ideation, she does not qualify for involuntary psychiatric admission at this moment. Passive support, motivation and psychoeducation provided. [facility]od act will be lifted ICD Code: F19.94 Assessment & Plan Estimated LOS: Karl Osorio MD Nov 27, 2016 09:47
== END 2016-11-27 11:28 | disposition home or self-care (01) ==
LOC: NEPE 15:01 → NEPJ 11-27 11:28
DX: F43.20 Adjustment disorder, unspecified (principal); F11.20 Opioid dependence, uncomplicated; R52 Pain, unspecified; F41.9 Anxiety disorder, unspecified; F31.9 Bipolar disorder, unspecified; F41.0 Panic disorder [episodic paroxysmal anxiety]; R56.9 Unspecified convulsions; F39 Unspecified mood [affective] disorder; Z21 Asymptomatic human immunodeficiency virus [HIV] infection status
CPT/HCPCS: 80048; 80307; 81001; 85025; 96374; 96375; 96376; 99284; J1200; J1630; J2060

== ENCOUNTER 2017-09-18 01:29 | Emergency (ER) | payer MEDICARE, MEDICAID ==
[~2017-09-18 01:29] MED LIST changes: -BACL10TA PO; -TRAZ150T75 PO; -TYLETAB34 PO
== END 2017-09-18 01:45 | disposition left against medical advice (07) ==
LOC: NEPE 01:29
DX: R56.9 Unspecified convulsions (principal)
CPT/HCPCS: 99281